=== PATIENT | male | born 1980 | race Caucasian/White ===

== ENCOUNTER 2017-06-23 20:15 | Emergency (ER) | payer SELFPAY ==
[~2017-06-23 20:15] MED LIST: Z.0.NO CURRENT MEDS
[2017-06-23 20:54] VITALS: BP 130/79; PULSE 88; RESP 20; TEMP 98.1; O2SAT 98
--- NOTE | 2017-06-23 22:24 | PD ---
HPI Chief Complaint: ENT Complaint Time Seen by Provider: 21:53 Travel History International Travel<30 days: No Contact w/Intl Traveler<30days: No Traveled to known affect area: No History of Present Illness HPI 36yo M with no PMH presents to the ED with c/o left ear pain for 4 days. Said he did put a Q tip in his left ear 2 days ago to clean his ear but did not go deep. Pt has some nasal congestion. Denies any fever, ear discharge, blood from ear, trauma, chest pain, visual changes, sob, n/v, abdominal pain, focal weakness or numbness. PFSH Past Medical History Medical History: Denies Significant Hx Tetanus Vaccination: Unknown Influenza Vaccination: No Social History Alcohol Use: No Tobacco Use: Yes (1/2 ppd) Substance Use: No Allergies-Medications (Allergen,Severity, Reaction): Coded Allergies: No Known Allergies (Verified Allergy, Mild, 06/23/17) Reported Meds & Prescriptions Reported Meds & Active Scripts Active Amoxicillin 500 Mg Tab 1,000 Mg PO Q8HR 5 Days Tylenol (Acetaminophen) 325 Mg Tab 650 Mg PO Q6H PRN Review of Systems Except as stated in HPI: all other systems reviewed are Neg Physical Exam Narrative GENERAL: 36yo M in mild distress. SKIN: Focused skin assessment warm/dry. HEAD: Atraumatic. Normocephalic. EYES: Pupils equal and round. No scleral icterus. No injection or drainage. ENT: Right ear: +cerumen. TM wnl. Left ear: TM wnl. Very mild ear canal edema. Throat: Clear. Uvula midline. No exudate. NECK: Trachea midline. No JVD. CARDIOVASCULAR: Regular rate and rhythm. No murmur appreciated. RESPIRATORY: No accessory muscle use. Clear to auscultation. Breath sounds equal bilaterally. GASTROINTESTINAL: Abdomen soft, non-tender, nondistended. MUSCULOSKELETAL: No obvious deformities. No clubbing. No cyanosis. No edema. NEUROLOGICAL: Awake and alert. No obvious cranial nerve deficits. Motor grossly within normal limits. Normal speech. PSYCHIATRIC: Appropriate mood and affect; insight and judgment normal. Data Data Last Documented VS Vital Signs Date Time Temp Pulse Resp B/P (MAP) Pulse Ox O2 Delivery O2 Flow Rate FiO2 06/23/17 20:54 98.1 88 20 130/79 (96) 98 Orders Orders Ed Discharge Order (06/23/17 22:31) MDM Medical Decision Making Medical Screen Exam Complete: Yes Emergency Medical Condition: Yes Differential Diagnosis URI vs. otitis media vs. otitis externa Narrative Course 36yo M with left ear pain for 4 days. Has some radiating left temporal pain as well. Denies any fever and has no focal neurologic deficits. I do not see physical signs of otitis media on exam but pt is insistent on my prescribing amoxicillin. I explained that I do not think it will help but he is very persistent. Will write prescription but instructed pt to follow up with ENT first instead. Pt given acetaminophen for pain. Return precautions given. Diagnosis Primary Impression: Left ear pain Referrals: Chris Hamm MD call for appointment Patient Instructions: General Instructions Departure Forms: Tests/Procedures Additional Instructions: Please follow up with ENT in 1-2 days. Return to the ED if symptoms worsen. Med/Other Pt SpecificInfo: Prescription(s) given Scripts Amoxicillin (Amoxicillin) 500 Mg Tab 1000 MG PO Q8HR for Infection for 5 Days, TAB 0 Refills Prov: Karen Maravilla DO 06/23/17 Acetaminophen (Tylenol) 325 Mg Tab 650 MG PO Q6H Y for PAIN SCALE 1 TO 4, #20 TAB 0 Refills Prov: Karen Maravilla DO 06/23/17 Disposition: 01 DISCHARGE HOME Condition: Stable Karen Maravilla DO Jun 23, 2017 22:24
[2017-06-23] MEDS ORDERED: TYLE325T PO (22:31)
[2017-06-23] MEDS ORDERED: AMOX500T PO (22:31)
[2017-06-23] MEDS ORDERED: ACETAMINOPHEN 325 MG TAB PO ONE (22:45)
== END 2017-06-23 22:38 | disposition home or self-care (01) ==
LOC: PHEFT 20:15
DX: H92.02 Otalgia, left ear (principal); F17.210 Nicotine dependence, cigarettes, uncomplicated
CPT/HCPCS: 99283